=== PATIENT | female | born 1970 | race Two or more races ===

== ENCOUNTER 2025-07-04 17:02 | Emergency (ER) | payer OTHER ==
[2025-07-04] MEDS: Acetaminophen/HYDROcodone 325-5 MG Tab PO ONE (19:08)
[2025-07-04] MEDS: Amoxicillin/Clavulanate K 875-125 MG Tab PO ONE (19:08)
== END 2025-07-04 19:11 | disposition home or self-care (01) ==
LOC: MW.ED 17:02
DX: K04.7 Periapical abscess without sinus (principal); J45.909 Unspecified asthma, uncomplicated; Z79.899 Other long term (current) drug therapy
CPT/HCPCS: 99282; A9270